=== PATIENT | female | born 1975 | race American Indian/Alaskan Native ===

== ENCOUNTER 2018-06-23 15:28 | Emergency (ER) | payer SELFPAY ==
[2018-06-23 15:40] VITALS: BP 130/88
== END 2018-06-23 20:46 | disposition left against medical advice (07) ==
LOC: ED 15:28
DX: N64.4 Mastodynia (principal); Z53.21 Procedure and treatment not carried out due to patient leaving prior to being seen by health care provider

== ENCOUNTER 2022-06-22 12:23 | Emergency (ER) | payer OTHER ==
[2022-06-22] MEDS ORDERED: IBUPROFEN 800 MG TAB PO ONE (15:35)
--- NOTE | 2022-06-22 15:37 | Emergency Department Report ---
ED ENT HPI - General Chief complaint: Dental/Oral Stated complaint: TOOTACHE , SWOLLEN FACE Source: patient Mode of arrival: Ambulatory Limitations: No Limitations - History of Present Illness Initial comments: 47-year-old female presents to the ED complaining tooth ache x1 day. She states she awakened this morning with some mild swelling to her right upper tooth area. Patient denies taking any prior medication to arrival. Patient denies any fever or chill. Patient is alert and oriented x3. No acute distress noted no ill appearance noted. MD complaint: tooth pain, sore throat Onset/Timin -: days(s) Severity: moderate Severity scale (0 -10): 8 Quality: aching Consistency: intermittent Improves with: none Worsens with: none Associated Symptoms: fever - Related Data Previous Rx's Medication Instructions Recorded Last Taken Type Acetaminophen/Codeine [Tylenol 1 tab PO Q6H PRN 3 Days #12 tab 06/22/22 Unknown Rx /Codeine # 3 tab] Ibuprofen [Motrin] 800 mg PO Q8HR PRN 15 Days #30 06/22/22 Unknown Rx tablet clindamycin HCL [Clindamycin HCl] 600 mg PO BID 10 Days #20 cap 06/22/22 Unknown Rx Allergies Allergy/AdvReac Type Severity Reaction Status Date / Time No Known Allergies Allergy Verified 06/23/18 15:40 ED Dental HPI - General Chief complaint: Dental/Oral Stated complaint: TOOTACHE , SWOLLEN FACE Source: patient Mode of arrival: Ambulatory Limitations: No Limitations - Related Data Previous Rx's Medication Instructions Recorded Last Taken Type Acetaminophen/Codeine [Tylenol 1 tab PO Q6H PRN 3 Days #12 tab 06/22/22 Unknown Rx /Codeine # 3 tab] Ibuprofen [Motrin] 800 mg PO Q8HR PRN 15 Days #30 06/22/22 Unknown Rx tablet clindamycin HCL [Clindamycin HCl] 600 mg PO BID 10 Days #20 cap 06/22/22 Unknown Rx Allergies Allergy/AdvReac Type Severity Reaction Status Date / Time No Known Allergies Allergy Verified 06/23/18 15:40 ED Review of Systems ROS: Stated complaint: TOOTACHE , SWOLLEN FACE Other details as noted in HPI Constitutional: denies: chills, fever Eyes: denies: eye pain, eye discharge, vision change ENT: dental pain. denies: ear pain, throat pain Respiratory: denies: cough, shortness of breath, wheezing Cardiovascular: denies: chest pain, palpitations Endocrine: no symptoms reported Gastrointestinal: denies: abdominal pain, nausea, diarrhea Genitourinary: denies: urgency, dysuria, discharge Musculoskeletal: denies: back pain, joint swelling, arthralgia Skin: denies: rash, lesions Neurological: denies: headache, weakness, paresthesias Psychiatric: denies: anxiety, depression Hematological/Lymphatic: denies: easy bleeding, easy bruising ED Past Medical Hx - Past Medical History Previous Medical History?: No - Social History Smoking Status: Never Smoker Substance Use Type: None - Medications Home Medications: Home Medications Medication Instructions Recorded Confirmed Last Taken Type Acetaminophen/Codeine [Tylenol 1 tab PO Q6H PRN 3 Days #12 tab 06/22/22 Unknown Rx /Codeine # 3 tab] Ibuprofen [Motrin] 800 mg PO Q8HR PRN 15 Days #30 06/22/22 Unknown Rx tablet clindamycin HCL [Clindamycin HCl] 600 mg PO BID 10 Days #20 cap 06/22/22 Unknown Rx ED Physical Exam - General Limitations: No Limitations General appearance: alert, in no apparent distress - Head Head exam: Present: atraumatic, normocephalic - Eye Eye exam: Present: normal appearance - ENT ENT exam: Present: mucous membranes moist - Expanded ENT Exam Expanded Teeth exam: Present: dental caries, dental tenderness # - Neck Neck exam: Present: normal inspection - Respiratory Respiratory exam: Present: normal lung sounds bilaterally. Absent: respiratory distress - Cardiovascular Cardiovascular Exam: Present: regular rate, normal rhythm. Absent: systolic murmur, diastolic murmur, rubs, gallop - GI/Abdominal GI/Abdominal exam: Present: soft, normal bowel sounds - Extremities Exam Extremities exam: Present: normal inspection - Back Exam Back exam: Present: normal inspection - Neurological Exam Neurological exam: Present: alert, oriented X3 - Psychiatric Psychiatric exam: Present: normal affect, normal mood - Skin Skin exam: Present: warm, dry, intact, normal color. Absent: rash ED Course Vital Signs 06/22/22 13:28 Temperature 100.8 F H Pulse Rate 72 Respiratory 14 Rate Blood Pressure 181/75 O2 Sat by Pulse 100 Oximetry ED Medical Decision Making - Medical Decision Making 47-year-old female presents to the ED complaining tooth ache x1 day. She states she awakened this morning with some mild swelling to her right upper tooth area. Patient denies taking any prior medication to arrival. Patient denies any fever or chill. Patient is alert and oriented x3. No acute distress noted no ill appearance noted. Physical examination patient has dental cavity noted to tooth #1 with mild edema noted around. Rocephin 1 g given IM and Motrin 800 mg given p.o. Rechecked the patient is resting quietly , comfortable and feeling better. I discussed the results of diagnostic study, my clinical impression and the plan for further treatment with the patient. Patient agrees with plan and discharge at this present time. All question addressed. I have given the patient instruction regarding a diagnosis ,expectation ,follow- up and return precaution. I explained to the patient that emergent condition may arise and to return to the ED for new worsen and any new persisting condition. I have explained the importance of following up with the primary care physician or referral physician listed below has instructed. The patient verbalized understanding of discharge instruction. Critical care attestation.: If time is entered above; I have spent that time in minutes in the direct care of this critically ill patient, excluding procedure time. ED Disposition Clinical Impression: Dental abscess Disposition: 01 HOME / SELF CARE / HOMELESS Is pt being admited?: No Does the pt Need Aspirin: No Condition: Stable Instructions: Dental Abscess, [id number] Additional Instructions: Take medication as prescribed return to the ED for any worsening symptoms Call your dentist on your dental insurance and follow-up with dentist as soon as possible Prescriptions: clindamycin HCL [Clindamycin HCl] 600 mg PO BID 10 Days #20 cap Ibuprofen [Motrin] 800 mg PO Q8HR PRN 15 Days #30 tablet PRN Reason: Pain , Severe (7-10) Acetaminophen/Codeine [Tylenol /Codeine # 3 tab] 1 tab PO Q6H PRN 3 Days #12 tab PRN Reason: Pain, Mild (1-3) Referrals: PRIMARY CARE,MD [Primary Care Provider] - 3-5 Days [facility] [Outside] - 3-5 Days Forms: Work/School Release Form(ED) Time of Disposition: 15:48
[2022-06-22] MEDS ORDERED: LIDOCAINE-MPF (1%) 10 MG/1 ML VIAL 5 ML INFILTRATI ONE (15:41)
[2022-06-22 16:05] VITALS: BP 138/89
== END 2022-06-22 16:06 | disposition home or self-care (01) ==
LOC: ED 12:23
DX: K04.7 Periapical abscess without sinus (principal)
CPT/HCPCS: 96372; 99282; J0696; J3490